=== PATIENT | male | born 1985 | race Caucasian/White ===

== ENCOUNTER 2018-06-26 06:48 | Emergency (ER) | payer SELFPAY ==
[2018-06-26 06:54] VITALS: BP 124/64; PULSE 74; RESP 16; TEMP 37.1; O2SAT 96
--- NOTE | 2018-06-26 07:06 | ED.GENADUL_ITS ---
Disposition Clinical Impression: Right shoulder strain Disposition: HOME Condition: Stable Instructions: Muscle Strain (ED) Additional Instructions: you can take 1000mg tylenol and 600mg ibuprofen every 6 hours as needed for pain Medical Decision Making - Medical Decision Making Pt here with shoulder strain, given location I suspect trapezius muscle strain specifically. No trauma and has no findings on exam to suggest fracture/ dislocation and has full rom so do not feel xrays indicated. ADvised RICE and f/ u with pcp if not improving, and also advised to return if symptoms significantly worsen - Differential Diagnosis strain, sprain, contusion, fx History of Present Illness - General Chief complaint: Chest/Rib Stated complaint: RIGHT SHOULDER PAIN Time Seen by Provider: 06/26/18 06:58 Source: patient Mode of arrival: ambulatory Limitations: no limitations - History of Present Illness Initial comments: 33 yo male comes in with right shuolder pain since yesterday. HE states he was throwing wood yesterday and felt pain in the right shoulder. HE has had pain since so came here. Denies fevers, chest pain, abd pain. HAs pain of superior shoulder and along trapezius muscle on the right with full rom, intact distal sensation and pulses, no swelling, redness or warmth and no palpable or visible deformities. 5/5 strength in the shoulder in abduction and adduction MD Complaint: right shoulder pain Onset/Timin -: days(s) Location: upper extremity Radiation: non-radiation Severity scale (1-10): 5 Quality: aching Consistency: constant Improves with: rest Worsens with: movement Associated Symptoms: denies other symptoms Treatments Prior to Arrival: none - Related Data Unknown [No Known Home Meds] 06/26/18 Allergies Allergy/AdvReac Type Severity Reaction Status Date / Time alcohol Allergy Mild Hives Unverified 06/26/18 06:58 Review of Systems Constitutional: denies: fever Respiratory: denies: shortness of breath Cardiovascular: denies: chest pain Gastrointestinal: denies: abdominal pain, nausea, vomiting Musculoskeletal: denies: back pain Skin: denies: rash Comment: All other systems reviewed and negative Past Medical History - Past Medical History Crohns disease Surgical history: other (Bowel resection) Family history: no significant family history - Social History Alcohol use: rarely Drug use: none General Exam - General Limitations: no limitations General appearance: alert, in no apparent distress - Head Head exam: Present: atraumatic - Eye Eye exam: Present: normal apperance - ENT ENT exam: Present: mucous membranes moist - Neck Neck exam: Present: normal inspection, full ROM. Absent: tenderness - Respiratory Respiratory exam: Present: normal lung sounds bilaterally. Absent: respiratory distress, chest wall tenderness - Cardiovascular Cardiovascular Exam: Present: regular rate, normal rhythm, normal heart sounds - Extremities Exam Extremities exam: Present: normal inspection, full ROM, normal capillary refill. Absent: joint swelling - Back Exam Back exam: Present: normal inspection. Absent: tenderness - Neurological Exam Neurological exam: Present: alert, oriented X3, normal gait. Absent: motor sensory deficit - Psychiatric Psychiatric exam: Present: normal affect - Skin Skin exam: Present: warm Course Vital Signs - 24 hr /28/18 06:54 Temperature 98.8 F Pulse 74 Respiratory 16 Rate Blood Pressure 124/64 Pulse Oximetry 96
[2018-06-26 07:21] VITALS: BP 124/64; PULSE 74; RESP 16; TEMP 37.1; O2SAT 96
== END 2018-06-26 07:21 | disposition home or self-care (01) ==
PROVIDERS: Emergency Provider Emergency Medicine; PCP Emergency Medicine
DX: S46.911A Strain of unspecified muscle, fascia and tendon at shoulder and upper arm level, right arm, initial encounter (principal); X50.3XXA Overexertion from repetitive movements, initial encounter
CPT/HCPCS: 99282

== ENCOUNTER 2019-01-28 10:16 | Emergency (ER) | payer SELFPAY ==
[2019-01-28] VITALS (37 sets, daily range): BP systolic 93–106; BP diastolic 48–65; PULSE 57–81; RESP 18; TEMP 37; O2SAT 95–98
[2019-01-28] MEDS: Lactated Ringers 500 ML IV (10:40)
--- NOTE | 2019-01-28 10:49 | W.ED.GENAD ---
Discharge Plan Disposition Patient Disposition: HOME Discharge Details Chief Complaint: Dizzy/Sync Clinical Impression: Lightheadedness, Hypomagnesemia Primary Care Provider: Jeremiah Velazquez ED Provider: Christian Fontanez Home Meds and New Rx's Prescriptions: New magnesium 200 mg tablet 200 mg PO DAILY Qty: 30 RF: 0 Discharge Instructions Instructions: Hypomagnesemia (ED) Additional Instructions: Be sure to drink plenty of fluids to stay hydrated. Take daily magnesium supplement Please contact your primary care physician to arrange follow-up and have labs rechecked. Return to the ER for any worsening or new concerning symptoms. Stand Alone Forms: Work Release Referrals: Jeremiah Velazquez, [Primary Care Provider] - Discharge Data Discharge Date/Time-TO BE ENTERED AT DEPARTURE: 01/28/19 13:59 Medical Decision Making 10:50 --33-year-old male with history of Crohn's disease and remote GI bleed, here with lightheadedness since this morning. Patient was low normal blood pressure. Patient states his blood pressures usually on the low end of normal. He is not tachycardic. Patient appears clinically dehydrated. Plan to give IV fluid bolus. Patient has had no bright red blood per rectum, no melena, no abdominal pain. Rectal exam was performed and Hemoccult negative. No environmental toxic exposures. We will check screening labs for electrolyte abnormalities and reassessed. Screening EKG to assess for arrhythmia to be performed. 13:45 --ECG reviewed and interpreted by me: Normal sinus rhythm 60 bpm, normal axis, subtle MS depression noted, nondiagnostic. Patient received IV fluid bolus. Labs reviewed. Hypomagnesemia noted. Patient was given magnesium 2 g IV. He tolerated this well. Patient reassessed and completely asymptomatic. Vitals stable. Disposition decision was made weighing the risks and benefits of hospitalization versus outpatient treatment, the risk for further decompensation, and the patient's wishes. The patient was stable and requested discharge. Prior to discharge, my usual and customary return precautions were reviewed with the patient - this included follow-up instructions and reason to return to the emergency department if condition worsens, does not improve as expected, or other new concerns arise. HPI General Mode of arrival: ambulatory. Date/Time Provider Initiated Documentation: 01/28/19 10:28. Limitations to Documentation: no limitations. Information obtained by: patient. HPI Narrative: 33-year-old male with history of Crohn's disease, prior GI bleed remotely, presents with chief complaint of dizziness. Patient notes that he has had dizziness since around 730 this morning. Dizziness characterized as lightheadedness as though he is going to pass out. Symptoms are intermittent. Severe at times. He has not had syncope. He has associated mild diffuse headache. No focal numbness or weakness. He has been fatigued since yesterday. He denies bright red blood per rectum and melena. No abdominal pain. Patient has felt as though he has been dehydrated and notes that he has not been drinking as much fluid as usual. Related Data Home Medications Medication Instructions Recorded Confirmed magnesium 200 mg PO DAILY #30 tab 01/28/19 Previous Rx's Medication Instructions Recorded magnesium 200 mg PO DAILY #30 tab 01/28/19 Allergies Allergy/AdvReac Type Severity Reaction Status Date / Time alcohol Allergy Mild Hives Unverified 01/28/19 10:26 General Stated Complaint: Dizzy/Sync BERNIE: 3 Review of Systems Constitutional Denies body ache(s), Reports fatigue, Reports fever(s) (Has felt intermittently feverish) and Reports headache(s) ENT Reports headache(s) Cardiovascular Denies dyspnea Respiratory Denies cough and Denies dyspnea Gastrointestinal Reports as per HPI and Denies abdominal pain Neurologic Reports headache(s) Endocrine Reports fatigue PFS Medical History Crohns disease (Chronic) Surgical History Appendectomy Colectomy hernia repair Family History Mother No problems noted. Father No problems noted. Sister No problems noted. Brother No problems noted. Social History Smoking/Tobacco Use Status: Former Tobacco Use Alcohol Intake: never Drug use: Never Do you feel safe at home: Yes Do you feel safe in your relationship?: Yes Exam Const General: cooperative and no acute distress HENMT Head: normocephalic and atraumatic Mouth: moist mucous membranes Eyes Conjunctivae: normal conjunctivae Sclera: normal sclerae Neck Neck: trachea midline and supple Resp Auscultation: clear to auscultation bilaterally, no rales, no rhonchi and no wheezes Cardio Jugular venous pressure: no JVD Rate: regular rate and not tachycardic Rhythm: regular rhythm GI Palpation: soft, not firm, no guarding, no masses, not rigid and nontender Skin General skin exam: no rashes or lesions noted Neuro General: alert, awake and tone normal Extrem General: no edema Course Vital Signs Pulse 64 01/28/19 10:20 Respiratory Rate 18 01/28/19 10:20 Blood Pressure 98/62 L 01/28/19 10:20 Pulse Oximetry 98 01/28/19 10:20 Pulse 64 01/28/19 10:20 Respiratory Rate 18 01/28/19 10:20 Respiratory Effort Non-Labored 01/28/19 10:24 Blood Pressure 98/62 L 01/28/19 10:20 Blood Pressure Position Sitting 01/28/19 10:20 Pulse Oximetry 98 01/28/19 10:20 Oxygen Delivery Method Room Air 01/28/19 10:20 Oxygen Flow Rate 0 01/28/19 10:20
[2019-01-28 10:52] LABS: Abs Immature Grans 0.01 k/cumm (0.0-0.09); Absolute Basophil Count 0.02 k/cumm (0.0-0.2); Absolute Eosinophil Count 0.01 k/cumm (0.0-0.7); Absolute Lymphocyte Count 0.61 k/cumm (1.2-3.4); Absolute Monocyte Count 0.41 k/cumm (0.11-0.7); Basophils % 0.2; Eosinophils % 0.1; HCT 46.1 % (40.0-50.0); HGB 16.2 g/dL (13.5-17.5); Immature Grans % 0.1; Lymphocytes % 5.4; Mean Corp. HGB Concentration 35.1 g/dL (32.0-36.0); Mean Corpuscular Hemoglobin 30.7 pg (27.0-33.0); Mean Corpuscular Volume 87.3 fL (80-95); Mean Platelet Volume 10.2 fL (8.0-11.0); Monocytes % 3.6; Neutrophils % 90.6; Platelet Count 214 x1000/uL (130-400); RBC 5.28 m/cumm (4.50-6.00); White Blood Cell Count 11.33 k/cumm (4.4-10.8)
[2019-01-28 10:53] LABS: Absolute Neutrophil Count 10.26 k/cumm (1.2-6.7)
--- NOTE | 2019-01-28 10:53 | ED.GENADUL_ITS ---
Discharge Plan Disposition Patient Disposition: HOME Discharge Details Chief Complaint: Dizzy/Sync Clinical Impression: Lightheadedness, Hypomagnesemia Primary Care Provider: Jeremiah Velazquez ED Provider: Christian Fontanez Home Meds and New Rx's Prescriptions: New magnesium 200 mg tablet 200 mg PO DAILY Qty: 30 RF: 0 Discharge Instructions Instructions: Hypomagnesemia (ED) Additional Instructions: Be sure to drink plenty of fluids to stay hydrated. Take daily magnesium supplement Please contact your primary care physician to arrange follow-up and have labs rechecked. Return to the ER for any worsening or new concerning symptoms. Stand Alone Forms: Work Release Referrals: Jeremiah Velazquez, [Primary Care Provider] - Discharge Data Discharge Date/Time-TO BE ENTERED AT DEPARTURE: 01/28/19 13:59 Medical Decision Making 10:50 --33-year-old male with history of Crohn's disease and remote GI bleed, here with lightheadedness since this morning. Patient was low normal blood pressure. Patient states his blood pressures usually on the low end of normal. He is not tachycardic. Patient appears clinically dehydrated. Plan to give IV fluid bolus. Patient has had no bright red blood per rectum, no melena, no abdominal pain. Rectal exam was performed and Hemoccult negative. No environmental toxic exposures. We will check screening labs for electrolyte abnormalities and reassessed. Screening EKG to assess for arrhythmia to be performed. 13:45 --ECG reviewed and interpreted by me: Normal sinus rhythm 60 bpm, normal axis, subtle [place] depression noted, nondiagnostic. Patient received IV fluid bolus. Labs reviewed. Hypomagnesemia noted. Patient was given magnesium 2 g IV. He tolerated this well. Patient reassessed and completely asymptomatic. Vitals stable. Disposition decision was made weighing the risks and benefits of hospitalization versus outpatient treatment, the risk for further decompensation, and the patient's wishes. The patient was stable and requested discharge. Prior to discharge, my usual and customary return precautions were reviewed with the patient - this included follow-up instructions and reason to return to the emergency department if condition worsens, does not improve as expected, or other new concerns arise. HPI General Mode of arrival: ambulatory . Date/Time Provider Initiated Documentation: 01/28/19 10:28 . Limitations to Documentation: no limitations . Information obtained by: patient . HPI Narrative: 33-year-old male with history of Crohn's disease, prior GI bleed remotely, presents with chief complaint of dizziness. Patient notes that he has had dizziness since around 730 this morning. Dizziness characterized as lightheadedness as though he is going to pass out. Symptoms are intermittent. Severe at times. He has not had syncope. He has associated mild diffuse headache. No focal numbness or weakness. He has been fatigued since yesterday. He denies bright red blood per rectum and melena. No abdominal pain. Patient has felt as though he has been dehydrated and notes that he has not been drinking as much fluid as usual. Related Data Home Medications Medication Instructions Recorded Confirmed magnesium 200 mg PO DAILY #30 tab 01/28/19 Previous Rx's Medication Instructions Recorded magnesium 200 mg PO DAILY #30 tab 01/28/19 Allergies Allergy/AdvReac Type Severity Reaction Status Date / Time alcohol Allergy Mild Hives Unverified 01/28/19 10:26 General Stated Complaint: Dizzy/Sync BERNIE: 3 Review of Systems Constitutional Denies body ache(s), Reports fatigue, Reports fever(s) (Has felt intermittently feverish) and Reports headache(s) ENT Reports headache(s) Cardiovascular Denies dyspnea Respiratory Denies cough and Denies dyspnea Gastrointestinal Reports as per HPI and Denies abdominal pain Neurologic Reports headache(s) Endocrine Reports fatigue PFS Medical History Crohns disease (Chronic) Surgical History Appendectomy Colectomy hernia repair Family History Mother No problems noted. Father No problems noted. Sister No problems noted. Brother No problems noted. Social History Smoking/Tobacco Use Status: Former Tobacco Use Alcohol Intake: never Drug use: Never Do you feel safe at home: Yes Do you feel safe in your relationship?: Yes Exam Const General: cooperative and no acute distress HENMT Head: normocephalic and atraumatic Mouth: moist mucous membranes Eyes Conjunctivae: normal conjunctivae Sclera: normal sclerae Neck Neck: trachea midline and supple Resp Auscultation: clear to auscultation bilaterally, no rales, no rhonchi and no wheezes Cardio Jugular venous pressure: no JVD Rate: regular rate and not tachycardic Rhythm: regular rhythm GI Palpation: soft, not firm, no guarding, no masses, not rigid and nontender Skin General skin exam: no rashes or lesions noted Neuro General: alert, awake and tone normal Extrem General: no edema Course Vital Signs Pulse 64 01/28/19 10:20 Respiratory Rate 18 01/28/19 10:20 Blood Pressure 98/62 L 01/28/19 10:20 Pulse Oximetry 98 01/28/19 10:20 Pulse 64 01/28/19 10:20 Respiratory Rate 18 01/28/19 10:20 Respiratory Effort Non-Labored 01/28/19 10:24 Blood Pressure 98/62 L 01/28/19 10:20 Blood Pressure Position Sitting 01/28/19 10:20 Pulse Oximetry 98 01/28/19 10:20 Oxygen Delivery Method Room Air 01/28/19 10:20 Oxygen Flow Rate 0 01/28/19 10:20
[2019-01-28 11:06] LABS: ALT 35 U/L (12-78); AST 16 U/L (15-37); Albumin 3.6 g/dL (3.4-5.0); Alkaline Phosphatase 104 U/L (46-116); Anion Gap 9.2 mmol/L (3-11); BUN 16 mg/dL (7-18); Bilirubin, Total 0.6 mg/dL (0.2-1.0); CO2 27.8 mmol/L (21.0-32.0); CREATININE 0.71 mg/dL (0.70-1.30); Calcium 8.6 mg/dL (8.5-10.1); Chloride 101 mmol/L (98-107); Glucose 106 mg/dL (70-100); Magnesium 1.3 mg/dL (1.8-2.4); Potassium 3.9 mmol/L (3.5-5.1); Sodium 138 mmol/L (136-145); Total Protein 6.6 g/dL (6.4-8.2); Troponin I 0.02 ng/mL (0.00-0.06)
[2019-01-28] MEDS: Acetaminophen 325 MG TAB (12:00)
[2019-01-28] MEDS: MAGNESIUM SULFATE 2 GM/50 ML BAG IVPB (12:33)
[2019-01-28] MEDS: Normal Saline 500 ML 1000 ML IV (13:00)
== END 2019-01-28 13:59 | disposition home or self-care (01) ==
PROVIDERS: Emergency Provider Student in an Organized Health Care Education/Training Program; PCP Emergency Medicine
DX: R42 Dizziness and giddiness (principal); E83.42 Hypomagnesemia
CPT/HCPCS: 36415; 80053; 86900; 86901; 93005; 96361; 96365; 99284; 83735; 84484; 85025; 93010

== ENCOUNTER 2023-03-07 18:47 | Outpatient (REF) | payer MEDICAID, SELFPAY ==
[2023-03-07 18:17] LABS: Abs Immature Grans 0.01 10^3/uL (0.0-0.06); Absolute Basophil Count 0.03 10^3/uL (0.0-0.2); Absolute Eosinophil Count 0.01 10^3/uL (0.0-0.7); Absolute Lymphocyte Count 0.95 10^3/uL (1.2-3.4); Absolute Monocyte Count 0.44 10^3/uL (0.1-0.8); Absolute Neutrophil Count 5.45 10^3/uL (1.2-6.7); Basophils % 0.4; Eosinophils % 0.1; HCT 44.1 % (40.0-50.0); HGB 15.2 g/dL (13.5-17.5); Immature Grans % 0.1; Lymphocytes % 13.8; MCH 30.5 pg (27.0-33.0); MCHC 34.5 % (32.0-36.0); MCV 89 fL (80-95); MPV 9.5 fL (8.0-11.0); Monocytes % 6.4; Neutrophils % 79.2; Platelet Count 217 10^3/uL (130-400); RBC 4.98 10^6/uL (4.36-5.78); RDW 12.6 % (11.8-14.1); RDW-SD 41.1 fL; WBC 6.89 10^3/uL (4.4-10.8)
[2023-03-07 18:25] LABS: Iron 67 ug/dL (65-175); Total Iron Binding Capacity 254 ug/dL (250-450); Transferrin Sat 26 % (20-55)
[2023-03-07 18:53] LABS: ALT 41 U/L (16-63); AST 23 U/L (15-37); Albumin 3.4 g/dL (3.4-5.0); Alkaline Phosphatase 107 U/L (46-116); Anion Gap 7.9 mmol/L (3-11); BUN 13 mg/dL (7-18); Bilirubin, Total 1.3 mg/dL (0.2-1.0); CO2 30.1 mmol/L (21.0-32.0); CREATININE 0.9 mg/dL (0.70-1.30); Calcium 8.9 mg/dL (8.5-10.1); Calculated LDL 44 mg/dL (<100); Chloride 103 mmol/L (98-107); Cholesterol 93 mg/dL (<200); Estimated GFR 114.22 (mL/min/1.73m2); Glucose 96 mg/dL (74-106); HDL Cholesterol 40 mg/dL (40-60); Potassium 3.9 mmol/L (3.5-5.1); Sodium 141 mmol/L (136-145); TSH (W/Ref FT4) 1.18 uIU/mL (0.36-3.74); Triglyceride 46 mg/dL (<150)
[2023-03-07 18:55] LABS: Vitamin B12 < 80 pg/mL (193-986)
[2023-03-07 19:04] LABS: C-Reactive Protein 0.24 mg/dL (0.0-0.3)
== END 2023-03-07 18:48 | disposition home or self-care (01) ==
LOC: NCHCN 18:47
PROVIDERS: Visit Provider Family Medicine
DX: K50.90 Crohn's disease, unspecified, without complications (principal); F32.89 Other specified depressive episodes; Z13.1 Encounter for screening for diabetes mellitus; Z13.220 Encounter for screening for lipoid disorders; Z00.00 Encounter for general adult medical examination without abnormal findings
CPT/HCPCS: 80053; 80061; 82607; 83036; 83540; 83550; 84443; 85025; 86140

== ENCOUNTER 2023-03-15 09:22 | Outpatient (REF) | payer MEDICAID, SELFPAY ==
[2023-03-17 19:24] LABS: Calprotectin 495 mcg/g
== END 2023-03-15 09:23 | disposition home or self-care (01) ==
LOC: NCHCN 09:22
PROVIDERS: Visit Provider Family Medicine
DX: K50.90 Crohn's disease, unspecified, without complications (principal)
CPT/HCPCS: 83993

== ENCOUNTER 2023-06-13 09:39 | Outpatient (REF) | payer MEDICAID, SELFPAY ==
[2023-06-13 16:49] LABS: Vitamin B12 320 pg/mL (193-986)
== END 2023-06-13 09:40 | disposition home or self-care (01) ==
LOC: NCHCN 09:39
PROVIDERS: PCP Family Medicine; Visit Provider Family Medicine
DX: E53.8 Deficiency of other specified B group vitamins (principal)
CPT/HCPCS: 82607

== ENCOUNTER 2023-10-24 13:00 | Outpatient (CLI) | payer MEDICAID, SELFPAY ==
[2023-10-24 11:37] LABS: Abs Immature Grans 0.03 10^3/uL (0.0-0.06); Absolute Basophil Count 0.03 10^3/uL (0.0-0.2); Absolute Eosinophil Count 0.06 10^3/uL (0.0-0.7); Absolute Lymphocyte Count 0.96 10^3/uL (1.2-3.4); Absolute Monocyte Count 0.42 10^3/uL (0.1-0.8); Absolute Neutrophil Count 5.79 10^3/uL (1.2-6.7); Basophils % 0.4; Eosinophils % 0.8; HCT 41.7 % (40.0-50.0); HGB 13.7 g/dL (13.5-17.5); Immature Grans % 0.4; Lymphocytes % 13.2; MCH 28.4 pg (27.0-33.0); MCHC 32.9 % (32.0-36.0); MCV 86 fL (80-95); MPV 9.5 fL (8.0-11.0); Monocytes % 5.8; Neutrophils % 79.4; Platelet Count 173 10^3/uL (130-400); RBC 4.83 10^6/uL (4.36-5.78); RDW 12.9 % (11.8-14.1); RDW-SD 40.2 fL; WBC 7.29 10^3/uL (4.4-10.8)
[2023-10-24 12:37] LABS: Vitamin D 25 Total 5.7 ng/mL (30-100)
[2023-10-24 12:42] LABS: ALT 24 U/L (16-63); AST 11 U/L (15-37); Albumin 2.9 g/dL (3.4-5.0); Alkaline Phosphatase 69 U/L (46-116); Anion Gap 6.1 mmol/L (3-11); BUN 13 mg/dL (7-18); Bilirubin, Total 0.9 mg/dL (0.2-1.0); CO2 28.9 mmol/L (21.0-32.0); CREATININE 0.7 mg/dL (0.70-1.30); Calcium 8.6 mg/dL (8.5-10.1); Chloride 106 mmol/L (98-107); Estimated GFR 122.47 (mL/min/1.73m2); Glucose 102 mg/dL (74-106); Potassium 3.5 mmol/L (3.5-5.1); Sodium 141 mmol/L (136-145); Total Protein 5.6 g/dL (6.4-8.2); Vitamin B12 173 pg/mL (193-986)
[2023-10-24 17:00] LABS: CRP, High Sensitivity 2.28 mg/L (See Note)
[2023-10-24 17:23] LABS: HBs Antibody, Quant <3.1 mIU/mL (See Note); Hepatitis B Surface Ab Negative (See Note)
[2023-10-24 17:35] LABS: Hepatitis B Surface Ag Negative (Negative)
[2023-10-24 18:03] LABS: HIV-1/2 Ag & Ab Screen Negative (Negative)
[2023-10-24 18:05] LABS: Hep B Core Antibody Negative (Negative); Hepatitis C Ab w Rflx HCV PCR Negative (Negative)
[2023-10-26 11:04] LABS: TB Interpretation Negative (Negative)
== END 2023-10-24 13:01 | disposition home or self-care (01) ==
LOC: LBO 13:01
PROVIDERS: PCP Family Medicine; Visit Provider Family Medicine
DX: K50.90 Crohn's disease, unspecified, without complications (principal); E55.9 Vitamin D deficiency, unspecified; Z11.4 Encounter for screening for human immunodeficiency virus [HIV]; Z11.59 Encounter for screening for other viral diseases; Z11.1 Encounter for screening for respiratory tuberculosis
CPT/HCPCS: 36415; 80053; 82306; 86141; 86704; 86706; 86803; 87340; 87389; 82607; 85025; 86480

== ENCOUNTER 2024-01-25 14:24 | Outpatient (REF) | payer MEDICAID, SELFPAY ==
[2024-01-25 17:15] LABS: Vitamin B12 495 pg/mL (193-986)
[2024-01-25 19:07] LABS: Vitamin D 25 Total 16.7 ng/mL (30-100)
== END 2024-01-25 14:25 | disposition home or self-care (01) ==
LOC: NCHCN 14:24
PROVIDERS: PCP Family Medicine; Visit Provider Family Medicine
DX: E53.8 Deficiency of other specified B group vitamins (principal); E55.9 Vitamin D deficiency, unspecified
CPT/HCPCS: 82306; 82607

== ENCOUNTER 2024-06-20 12:32 | Outpatient (REF) | payer MEDICAID, SELFPAY ==
[2024-06-20 16:44] LABS: Vitamin B12 396 pg/mL (193-986); Vitamin D 25 Total 17.2 ng/mL (30-100)
== END 2024-06-20 12:33 | disposition home or self-care (01) ==
LOC: NCHCN 12:32
PROVIDERS: PCP Student in an Organized Health Care Education/Training Program; Visit Provider Student in an Organized Health Care Education/Training Program
DX: E53.8 Deficiency of other specified B group vitamins (principal); E55.9 Vitamin D deficiency, unspecified
CPT/HCPCS: 82306; 82607